=== PATIENT | female | born 1975 | race African-American/Black ===

== ENCOUNTER 2016-03-30 13:45 | Emergency (ER) | payer OTHER ==
[2016-03-30 14:02] VITALS: BP 149/95
--- NOTE | 2016-03-30 14:04 | ER Document Report ---
ED Medical Screen (RME) - General Stated Complaint: FELL/FOOT PAIN Mode of Arrival: Wheelchair Information source: Patient Notes: Patient was wearing high heels yesterday, slipped injuring her right foot I have greeted and performed a rapid initial assessment of this patient. A comprehensive ED assessment and evaluation of the patient, analysis of test results and completion of the medical decision making process will be conducted by additional ED providers. TRAVEL OUTSIDE OF THE [place] IN LAST 30 DAYS: No - Related Data Allergies/Adverse Reactions: No Known Allergies Allergy (Verified 03/30/16 14:02) Past Medical History - Past Medical History Cardiac Medical History: Reports: Hx Hypertension Past Surgical History: Reports: Hx Section - Immunizations Immunizations up to date: Yes Hx Diphtheria, Pertussis, Tetanus Vaccination: No Physical Exam - Vital signs Vitals: Temp Pulse Resp BP Pulse Ox 98.3 F 73 18 149/95 H 99 03/30/16 14:01 03/30/16 14:01 03/30/16 14:01 03/30/16 14:01 03/30/16 14:01 - Extremities General lower extremity: Tender - Right foot tenderness involving first metatarsal Course - Vital Signs Vital signs: Temp Pulse Resp BP Pulse Ox 98.3 F 73 18 149/95 H 99 03/30/16 14:01 03/30/16 14:01 03/30/16 14:01 03/30/16 14:01 03/30/16 14:01
[2016-03-30] MEDS ORDERED: IBUPROFEN 800 MG TABLET PO ONE (15:31)
--- NOTE | 2016-03-30 15:37 | ER Document Report ---
HPI - HPI Pain Level: 5 Context: patient states she tripped last evening and has pain at the base of her big toe. she states she is able to walk but it hurts. pain 4/5 in severity from [facility] - [facility] Skin Color: Normal Past Medical History - General Information source: Patient - Social History Smoking Status: Current Every Day Smoker Chew tobacco use (# tins/day): No Frequency of alcohol use: Occasional Drug Abuse: None Family History: Reviewed & Not Pertinent Patient has suicidal ideation: No Patient has homicidal ideation: No - Past Medical History Cardiac Medical History: Reports: Hx Hypertension Renal/ Medical History: Denies: Hx Peritoneal Dialysis Past Surgical History: Reports: Hx Section - Immunizations Immunizations up to date: Yes Hx Diphtheria, Pertussis, Tetanus Vaccination: No Vertical Provider Document - CONSTITUTIONAL Agree With Documented VS: Yes Exam Limitations: No Limitations General Appearance: WD/WN, No Apparent Distress - INFECTION CONTROL TRAVEL OUTSIDE OF THE [place] IN LAST 30 DAYS: No - RESPIRATORY O2 Sat by Pulse Oximetry: 99 - CARDIOVASCULAR Pulses: Normal: Dorsalis pedis Notes: capillary refill < 2 seconds in all LE digits - MUSCULOSKELETAL/EXTREMETIES Musculoskeletal/Extremeties: MAEW, Tender, Edema. negative: Eccymosis - NEURO Level of Consciousness: Awake, Alert, Appropriate Motor/Sensory: No Sensory Deficit - DERM Integumentary: Warm, Dry, No Rash Course - Re-evaluation Re-evalutation: 03/30/16 15:33 patient with right foot pain and swelling, no evidence of fracture on xray. will dc home and can f/u with PCP as needed - Vital Signs Vital signs: Temp Pulse Resp BP Pulse Ox 98.3 F 73 18 149/95 H 99 03/30/16 14:01 03/30/16 14:01 03/30/16 14:01 03/30/16 14:01 03/30/16 14:01 Discharge - Discharge Clinical Impression: Foot pain Qualifiers: Laterality: right Qualified Code(s): M79.671 - Pain in right foot Condition: Good Disposition: HOME, SELF-CARE Instructions: Ice & Elevation ([facility]), Use of Crutches ([facility]) Additional Instructions: Sprained Toe Your toe injury is a sprain. A sprain is an over-stretching or tearing of the ligaments which guard the joints. The injury may require a few weeks of protection while it heals. Toe sprains usually do not require a splint. Instead, the injured toe is taped to an adjacent toe. Ice packs and elevation help reduce swelling. Complete healing takes about three weeks. Sometimes a severe toe sprain may require a special shoe, cast, or walking boot before you can bear weight comfortably on the foot. Your physician has assessed the seriousness of the ligament injury in your toe, and has outlined the initial treatment plan. Understand that this treatment may change, depending on how your toe progresses. If further visits were recommended, it is important that you follow up as instructed. Call the doctor at once if there is severe pain or numbness in the toe. Prescriptions: Ibuprofen [Motrin 800 mg Tablet] 800 mg PO Q8HP PRN #30 tab PRN Reason: Forms: Return to Work, Elevated Blood Pressure
== END 2016-03-30 16:10 | disposition home or self-care (01) ==
LOC: ER 13:45
DX: M79.671 Pain in right foot (principal); M79.89 Other specified soft tissue disorders; I10 Essential (primary) hypertension; F17.200 Nicotine dependence, unspecified, uncomplicated
CPT/HCPCS: 99283

== ENCOUNTER 2016-08-08 13:46 | Emergency (ER) | payer OTHER ==
--- NOTE | 2016-08-08 14:38 | ER Document Report ---
ED Medical Screen (RME) - General Chief Complaint: High Blood Pressure Stated Complaint: FEET SWELLING Time Seen by Provider: 08/08/16 14:27 Mode of Arrival: Ambulatory Information source: Patient Notes: 40-year-old female presented to ED for swelling to the feet bruising under the left arm and is shaking when she smiles. She states she has also had cold hot and cold flashes and her blood pressure is 144/109. She states she has not been taking her lisinopril because 1 of her friends had a bad reaction to it and she was given to the medicine. She states she has soreness under her left arm that is not a pain but there is a bruise under her left arm. Patient denies any cough at this time. I have greeted and performed a rapid initial assessment of this patient. A comprehensive ED assessment and evaluation of the patient, analysis of test results and completion of medical decision making process will be conducted by an additional ED providers. TRAVEL OUTSIDE OF THE [place] IN LAST 30 DAYS: No - HPI Quality of pain: Other - sore Severity: Mild Pain Level: 1 Associated Symptoms: Chills, Other - swelling to ankles, tremors, - Related Data Allergies/Adverse Reactions: No Known Allergies Allergy (Verified 03/30/16 14:02) Past Medical History - Past Medical History Cardiac Medical History: Reports: Hx Hypertension Renal/ Medical History: Denies: Hx Peritoneal Dialysis Past Surgical History: Reports: Hx Section - Immunizations Immunizations up to date: Yes Hx Diphtheria, Pertussis, Tetanus Vaccination: No Physical Exam - Vital signs Vitals: Temp Pulse Resp BP Pulse Ox 98.4 F 100 15 144/109 H 100 08/08/16 13:57 08/08/16 13:57 08/08/16 13:57 08/08/16 13:57 08/08/16 13:57 Course - Vital Signs Vital signs: Temp Pulse Resp BP Pulse Ox 98.4 F 100 15 144/109 H 100 08/08/16 13:57 08/08/16 13:57 08/08/16 13:57 08/08/16 13:57 08/08/16 13:57
[2016-08-08 15:27] LABS: ABSOLUTE BASOPHILS # (AUTO) 0.1 10^3/uL (0.0-0.2); ABSOLUTE EOSINOPHILS # (AUTO) 0.2 10^3/uL (0.0-0.6); ABSOLUTE LYMPHOCYTES (AUTO) 3.1 10^3/uL (0.5-4.7); ABSOLUTE MONOCYTES (AUTO) 0.7 10^3/uL (0.1-1.4); ABSOLUTE NEUT (AUTO) 5.1 10^3/uL (1.7-8.2); BASOPHILS % (AUTO) 0.9 % (0-2); EOSINOPHILS % (AUTO) 2.4 % (0-6); HEMATOCRIT 38.1 % (36.0-47.0); HGB HCT DIFFERENCE 0.9; LYMPHOCYTES % (AUTO) 33.5 % (13-45); MEAN CORPUSCULAR HEMOGLOBIN 31.1 pg (27.0-33.4); MEAN CORPUSCULAR HGB CONC 34.2 g/dL (32.0-36.0); MEAN CORPUSCULAR VOLUME 91 fl (80-97); MONOCYTES % (AUTO) 7.6 % (3-13); RED BLOOD COUNT 4.19 10^6/uL (3.72-5.28); RED CELL DISTRIBUTION WIDTH 13.3 % (11.5-14.0); SEGMENTED NEUTROPHILS % (AUTO) 55.6 % (42-78); WHITE BLOOD COUNT 9.2 10^3/uL (4.0-10.5)
[2016-08-08 15:41] LABS: ALANINE AMINOTRANSFERASE 54 U/L (9-52); ALBUMIN 3.9 g/dL (3.5-5.0); ALKALINE PHOSPHATASE 61 U/L (38-126); ANION GAP 11 (5-19); ASPARTATE AMINO TRANSFERASE 36 U/L (14-36); BILIRUBIN,DIRECT 0.3 mg/dL (0.0-0.4); BILIRUBIN,TOTAL 0.6 mg/dL (0.2-1.3); BLOOD UREA NITROGEN 8 mg/dL (7-20); CALCIUM 8.9 mg/dL (8.4-10.2); CARBON DIOXIDE 25 mmol/L (22-30); CHLORIDE 102 mmol/L (98-107); CREATININE RESULT 0.64 mg/dL (0.52-1.25); GLUCOSE 88 mg/dL (75-110); POTASSIUM 3.5 mmol/L (3.6-5.0); SODIUM 137.7 mmol/L (137-145)
[2016-08-08 15:46] LABS: APPEARANCE,URINE CLEAR; BILIRUBIN,URINE NEGATIVE (NEGATIVE); GLUCOSE, URINE NEGATIVE (NEGATIVE); KETONES,URINE TRACE mg/dL (NEGATIVE); LEUKOCYTE ESTERASE,URINE NEGATIVE (NEGATIVE); NITRITE,URINE NEGATIVE (NEGATIVE); PROTEIN,URINE NEGATIVE (NEGATIVE); URINE SPECIFIC GRAVITY 1.008
--- NOTE | 2016-08-08 16:25 | RADIOLOGY REPORT (SQ) ---
EXAM DESCRIPTION: SHOULDER LEFT 2 OR MORE VIEWS COMPLETED DATE/TIME: 08/08/2016 4:11 pm REASON FOR STUDY: pain COMPARISON: None. NUMBER OF VIEWS: Three views. TECHNIQUE: Internal rotation, external rotation, and Y view images acquired of the left shoulder. LIMITATIONS: None. FINDINGS: MINERALIZATION: Normal. BONES: No acute fracture or dislocation. No worrisome bone lesions. JOINTS: No dislocation. VISUALIZED LUNGS AND RIBS: No pneumothorax. No rib fracture. SOFT TISSUES: No radiopaque foreign body. OTHER: No other significant finding. IMPRESSION: NEGATIVE STUDY OF THE LEFT SHOULDER. NO RADIOGRAPHIC EVIDENCE OF ACUTE INJURY. TECHNICAL DOCUMENTATION: JOB ID: [id number] [employer]- All Rights Reserved
--- NOTE | 2016-08-08 17:46 | ER Document Report ---
ED General - General Chief Complaint: High Blood Pressure Stated Complaint: FEET SWELLING Time Seen by Provider: 08/08/16 14:27 Mode of Arrival: Ambulatory TRAVEL OUTSIDE OF THE [place] IN LAST 30 DAYS: No - HPI Patient complains to provider of: Bilateral leg swelling hypertension left shoulder pain Notes: States that she is visiting from out of state coming in for the above-stated symptoms. Patient states worsening or since he has been home here in [place]. Patient denies any fevers chills nausea vomiting chest pain abdominal pain. Patient states she is recently taken herself off of her lisinopril is a history of a friend that had a bad reaction. Patient also states unable to lift her shoulder sometimes above 90 however patient is currently having her arm above her head. Patient denies any history of trauma. Patient has bilateral leg swelling ongoing for the last 2 weeks. No history of PE DVT in the past - Related Data Allergies/Adverse Reactions: No Known Allergies Allergy (Verified 03/30/16 14:02) Past Medical History - General Information source: Patient - Social History Smoking Status: Current Some Day Smoker Chew tobacco use (# tins/day): No Frequency of alcohol use: Rare Drug Abuse: None Family History: Reviewed & Not Pertinent Patient has suicidal ideation: No Patient has homicidal ideation: No - Past Medical History Cardiac Medical History: Reports: Hx Hypertension Renal/ Medical History: Denies: Hx Peritoneal Dialysis Past Surgical History: Reports: Hx Section - Immunizations Immunizations up to date: Yes Hx Diphtheria, Pertussis, Tetanus Vaccination: No Review of Systems - Review of Systems Constitutional: Other - Elevated blood pressure leg swelling bilaterally left arm pain. EENT: No symptoms reported Cardiovascular: No symptoms reported Respiratory: No symptoms reported Gastrointestinal: No symptoms reported Genitourinary: No symptoms reported Female Genitourinary: No symptoms reported Musculoskeletal: No symptoms reported Skin: No symptoms reported Hematologic/Lymphatic: No symptoms reported Neurological/Psychological: No symptoms reported -: Yes All other systems reviewed and negative Physical Exam - Vital signs Vitals: Temp Pulse Resp BP Pulse Ox 98.4 F 100 15 144/109 H 100 08/08/16 13:57 08/08/16 13:57 08/08/16 13:57 08/08/16 13:57 08/08/16 13:57 Interpretation: Normal - General General appearance: Appears well, Alert - HEENT Head: Normocephalic, Atraumatic Eyes: Normal Pupils: PERRL - Respiratory Respiratory status: No respiratory distress Chest status: Nontender Breath sounds: Normal Chest palpation: Normal - Cardiovascular Rhythm: Regular Heart sounds: Normal auscultation Murmur: No - Abdominal Inspection: Normal Distension: No distension Bowel sounds: Normal Tenderness: Nontender Organomegaly: No organomegaly - Back Back: Normal, Nontender - Extremities General upper extremity: Normal inspection, Tender - Palpation left shoulder at the AC joint. No signs of trauma no deformity., Normal color, Normal ROM, Normal temperature General lower extremity: Normal inspection, Nontender, Edema - Trace edema bilaterally no calf tenderness, Normal color, Normal ROM, Normal temperature, Normal weight bearing. No: Genaro's sign - Neurological Neuro grossly intact: Yes Cognition: Normal Orientation: AAOx4 Eduardo Coma Scale Eye Opening: Spontaneous Eduardo Coma Scale Verbal: Oriented Eduardo Coma Scale Motor: Obeys Commands [place] Coma Scale Total: 15 Speech: Normal Motor strength normal: LUE, RUE, LLE, RLE Sensory: Normal - Psychological Associated symptoms: Normal affect, Normal mood - Skin Skin Temperature: Warm Skin Moisture: Dry Skin Color: Normal Course - Re-evaluation Re-evalutation: 08/08/16 20:36 patient is . Beta hCG returned pains approximately 6-7 weeks. Patient is unaware of her last menstrual cycle. Patient not having abdominal pain this time do not feel there is any need for official ultrasound. Patient was encouraged take vitamins will start the patient on labetalol for blood pressure control encouraged follow-up with [facility]. Patient will be discharged home. - Vital Signs Vital signs: Temp Pulse Resp BP Pulse Ox 98.0 F 91 19 149/106 H 99 08/08/16 18:02 08/08/16 18:02 08/08/16 18:02 08/08/16 18:02 08/08/16 18:02 - Laboratory Result Diagrams: 08/08/16 15:00 08/08/16 15:00 Laboratory results interpreted by me: 08/08/16 08/08/16 08/08/16 14:45 15:00 15:00 Potassium 3.5 L ALT 54 H Serum HCG, Qual POSITIVE H Beta HCG, Quant Urine Ketones TRACE H Urine Urobilinogen 2.0 H 08/08/16 15:00 Potassium ALT Serum HCG, Qual Beta HCG, Quant 5834.80 H Urine Ketones Urine Urobilinogen Discharge - Discharge Clinical Impression: Qualifiers: Weeks of gestation: less than 8 weeks Qualified Code(s): Z3A.01 - Less than 8 weeks gestation of Left shoulder pain Qualifiers: Chronicity: acute Qualified Code(s): M25.512 - Pain in left shoulder Condition: Good Disposition: HOME, SELF-CARE Instructions: High Blood Pressure ([facility]), Hypertension in ([facility]), ([facility]), Exercise Program for the Shoulder ([facility], [facility]) Additional Instructions: Your laboratory studies today show that you are . I recommend she start taking vitamins. We will start you on a blood pressure medication called labetalol. Please take as directed. Return to the ER symptoms worsen. Follow-up with your primary care physician. I recommend she follow-up with [facility]. If you do experience any nausea may take the medications as described below. At this time I did not see any signs of bony injury for your shoulder pain. More likely this could be muscle skeletal. May take Tylenol for pain control For nausea and vomiting during I recomment: Start with 10-12.5 mg of pyridoxine (vitamin B6) three times a day for 2 days. If not fully effective, Increase to 12.5 mg of pyridoxine four times a day for 2 days. If not fully effective, Increase to 25 mg of pyridoxine three times a day for 2 days. If not fully effective, Continue 25 mg pyridoxine 3 times a day, and add 12.5 mg of doxylamine before bedtime each day for 2 days. If not fully effective, Continue 25 mg pyridoxine 3 times a day, and take 12.5 mg of doxylamine twice a day. If not fully effective, Continue 25 mg pyridoxine 3 times a day, and take 12.5 mg of doxylamine three times a day. If not fully effective, Continue 25 mg pyridoxine 3 times a day, and 12.5 mg of doxylamine 3 times a day , while adding Emetrol, one to two tablespoons (15-30 cc) taken once or twice a day as needed. (Emetrol is an [id number] mixture of sugar syrups and phosphoric acid [phosphorylated carbohydrate solution]) that acts by soothing the actual wall of the gastrointestinal tract). If not fully effective, Consult with your doctor. Prescriptions: Labetalol HCl 50 mg PO BID 30 Days
[2016-08-08] MEDS ORDERED: LABETALOL HCL 200 MG TABLET PO ONE (18:15)
[2016-08-08 18:24] VITALS: BP 149/106
--- NOTE | 2016-08-08 20:43 | EKG REPORT ---
SEVERITY:- NORMAL ECG - SINUS RHYTHM : Confirmed by: Viviana Crook 08-Aug-2016 20:42:26
[2016-08-09] MEDS ORDERED: LABETALOL HCL 200 MG TABLET PO ONE (18:02)
== END 2016-08-08 18:24 | disposition home or self-care (01) ==
LOC: ER 13:46
DX: O99.89 Other specified diseases and conditions complicating pregnancy, childbirth and the puerperium (principal); M25.512 Pain in left shoulder; O10.911 Unspecified pre-existing hypertension complicating pregnancy, first trimester; T46.4X6A Underdosing of angiotensin-converting-enzyme inhibitors, initial encounter; Z91.128 Patient's intentional underdosing of medication regimen for other reason; Z91.14 Patient's other noncompliance with medication regimen; O12.01 Gestational edema, first trimester; O99.331 Smoking (tobacco) complicating pregnancy, first trimester; Z3A.01 Less than 8 weeks gestation of pregnancy; O26.891 Other specified pregnancy related conditions, first trimester
CPT/HCPCS: 36415; 80053; 81001; 84702; 84703; 85025; 93005; 93010; 99284